=== PATIENT | female | born 1955 | race Caucasian/White ===

== ENCOUNTER → 2018-04-11 | Emergency (ER) | payer OTHER ==
[~2018-04-11] VITALS: Ht 157.5 cm; Wt 54.4 kg
[~2018-04-11] MED LIST: CELECOXIB100 MG PO; IRON1TAB4 PO; KELP150 MC1 PO
== END | disposition left against medical advice (07) ==
LOC: ER 14:16
DX: Z53.20 Procedure and treatment not carried out because of patient's decision for unspecified reasons (principal)

== ENCOUNTER 2018-04-16 14:31 | Emergency (ER) | payer OTHER ==
[~2018-04-16] VITALS: Ht 157.5 cm; Wt 56.2 kg
[2018-04-16] MEDS ORDERED: KELP150 MC1 PO (14:48)
[2018-04-16] MEDS ORDERED: IRON1TAB4 PO (18:27)
[2018-04-16] MEDS ORDERED: CELECOXIB100 MG PO (18:27)
== END 2018-04-16 21:17 | disposition home or self-care (01) ==
LOC: ER 14:31
DX: M79.642 Pain in left hand (principal); M79.641 Pain in right hand